=== PATIENT | female | born 1970 | race Caucasian/White ===

== ENCOUNTER → 2019-07-24 | Outpatient (CLI) | payer OTHER ==
--- NOTE | 2019-07-24 13:31 | RADIOLOGY REPORT (SQ) ---
EXAM DESCRIPTION: CHEST PA/LATERAL COMPLETED DATE/TIME: 07/24/2019 1:23 pm REASON FOR STUDY: PRE-OP COMPARISON: None available EXAM PARAMETERS: NUMBER OF VIEWS: two views TECHNIQUE: Digital Frontal and Lateral radiographic views of the chest acquired. RADIATION DOSE: NA LIMITATIONS: none FINDINGS: LUNGS AND PLEURA: No opacities, masses or pneumothorax. No pleural effusion. MEDIASTINUM AND HILAR STRUCTURES: No masses or contour abnormalities. HEART AND VASCULAR STRUCTURES: Heart normal size. No evidence for failure. BONES: No acute findings. HARDWARE: None in the chest. OTHER: No other significant finding. IMPRESSION: NO SIGNIFICANT RADIOGRAPHIC FINDING IN THE CHEST. TECHNICAL DOCUMENTATION: JOB ID: [id number] [employer]- All Rights Reserved Reading location - IP/workstation name: [email or web address]
[2019-07-24 14:07] LABS: ABSOLUTE BASOPHILS # (AUTO) 0.1 10^3/uL (0.0-0.2); ABSOLUTE EOSINOPHILS # (AUTO) 0.1 10^3/uL (0.0-0.6); ABSOLUTE LYMPHOCYTES (AUTO) 1.6 10^3/uL (0.5-4.7); ABSOLUTE MONOCYTES (AUTO) 0.4 10^3/uL (0.1-1.4); ABSOLUTE NEUT (AUTO) 3.7 10^3/uL (1.7-8.2); BASOPHILS % (AUTO) 0.9 % (0-2); EOSINOPHILS % (AUTO) 2.3 % (0-6); HEMATOCRIT 38.3 % (36.0-47.0); HEMOGLOBIN 13.1 g/dL (12.0-15.5); LYMPHOCYTES % (AUTO) 27.4 % (13-45); MEAN CORPUSCULAR HGB CONC 34.1 g/dL (32.0-36.0); MEAN CORPUSCULAR VOLUME 82 fl (80-97); MONOCYTES % (AUTO) 6.7 % (3-13); PLATELET COUNT 253 10^3/uL (150-450); RED BLOOD COUNT 4.67 10^6/uL (3.72-5.28); RED CELL DISTRIBUTION WIDTH 13.7 % (11.5-14.0); SEGMENTED NEUTROPHILS % (AUTO) 62.7 % (42-78); TOTAL CELLS COUNTED % (AUTO) 100 %
[2019-07-24 14:12] LABS: APPEARANCE,URINE CLEAR; BILIRUBIN,URINE NEGATIVE (NEGATIVE); COLOR,URINE STRAW; GLUCOSE, URINE NEGATIVE (NEGATIVE); KETONES,URINE NEGATIVE (NEGATIVE); LEUKOCYTE ESTERASE,URINE NEGATIVE (NEGATIVE); NITRITE,URINE NEGATIVE (NEGATIVE); PROTEIN,URINE NEGATIVE (NEGATIVE); URINE SPECIFIC GRAVITY 1.002; UROBILINOGEN,URINE NEGATIVE mg/dL (<2.0)
[2019-07-24 14:32] LABS: ALBUMIN 4.4 g/dL (3.5-5.0); ANION GAP 13 (5-19); BLOOD UREA NITROGEN 7 mg/dL (7-20); C-REACTIVE PROTEIN 28.7 mg/L (<10.0); CALCIUM 9.8 mg/dL (8.4-10.2); CARBON DIOXIDE 26 mmol/L (22-30); CHLORIDE 98 mmol/L (98-107); GLUCOSE 97 mg/dL (75-110); POTASSIUM 4.1 mmol/L (3.6-5.0)
[2019-07-24 14:58] LABS: ERYTHROCYTE SEDIMENTATION RATE 31 mm/hr (0-20)
--- NOTE | 2019-07-24 15:13 | EKG REPORT ---
SEVERITY:- BORDERLINE ECG - SINUS TACHYCARDIA BORDERLINE T ABNORMALITIES, ANT-LAT LEADS : Confirmed by: Caroline Victoria MD 24-Jul-2019 15:12:56
== END ==
LOC: OD 12:35
PROVIDERS: ATTEND Orthopaedic Surgery
DX: Z01.818 Encounter for other preprocedural examination (principal); R94.31 Abnormal electrocardiogram [ECG] [EKG]; I10 Essential (primary) hypertension
CPT/HCPCS: 36415; 71046; 80048; 81001; 82040; 82306; 83036; 84134; 85025; 85652; 86140; 93005; 93010

== ENCOUNTER → 2019-07-31 | Outpatient (CLI) | payer OTHER ==
[2019-08-02 07:50] LABS: CYCLIC CITRUL PEPTIDE IGG/A AB >250 units (0-19); LYME DISEASE IGM AB <0.80 index (0.00-0.79)
[2019-08-04 12:38] LABS: HLA B 27 DISEASE ASSOCIATION Negative (.)
== END ==
LOC: OD 08:29
PROVIDERS: ATTEND Orthopaedic Surgery
DX: Z01.812 Encounter for preprocedural laboratory examination (principal); A69.20 Lyme disease, unspecified
CPT/HCPCS: 36415; 86200; 86430; 86617; 86618; 86812

== ENCOUNTER → 2019-12-25 | Outpatient (CLI) | payer OTHER ==
[2019-12-25 14:09] LABS: FREE T3 3.27 pg/mL (2.77-5.27)
[2019-12-25 14:23] LABS: THYROID STIMULATING HORMONE 0.66 uIU/mL (0.47-4.68)
== END ==
LOC: OD 12:38
PROVIDERS: ATTEND Orthopaedic Surgery
DX: I10 Essential (primary) hypertension (principal); M17.11 Unilateral primary osteoarthritis, right knee; E03.9 Hypothyroidism, unspecified
CPT/HCPCS: 36415; 82306; 84436; 84443; 84481; 85652; 86140

== ENCOUNTER 2020-01-04 10:00 | Day surgery (SDC) | payer OTHER ==
[2020-01-01 11:10] LABS: HEMATOCRIT 40.4 % (36.0-47.0); HEMOGLOBIN 13.7 g/dL (12.0-15.5); MEAN CORPUSCULAR HEMOGLOBIN 27.9 pg (27.0-33.4); MEAN CORPUSCULAR VOLUME 82 fl (80-97); PLATELET COUNT 208 10^3/uL (150-450); RED BLOOD COUNT 4.92 10^6/uL (3.72-5.28); RED CELL DISTRIBUTION WIDTH 13.2 % (11.5-14.0)
[2020-01-01 11:30] LABS: ANION GAP 7 (5-19); BLOOD UREA NITROGEN 8 mg/dL (7-20); CARBON DIOXIDE 27 mmol/L (22-30); CHLORIDE 103 mmol/L (98-107); GLUCOSE 109 mg/dL (75-110); POTASSIUM 4.7 mmol/L (3.6-5.0)
[~2020-01-04 10:00] MED LIST: ACETAMINOPHEN 325 MG TABLET PO PRN; CEFAZOLIN 2 GM/D5W RTU 2 GM/50 ML RTUPB IV PRN; CELECOXIB 200 MG CAPSULE PO PRN; GABAPENTIN 100 MG CAPSULE PO PRN; ONDANSETRON HCL INJ/PF 4 MG/2 ML SDV IV PRN; SCOPOLAMINE HYDROBROMIDE 1.5 MG PATCH.TD72 TD PRN; TRAMADOL HCL 50 MG TABLET PO PRN; TRANEXAMIC ACID INJ/PF 1,000 MG/10 ML SDV IV PRN; VANCOMYCIN HCL 1,000 MG in DEXTROSE 5%-WATER 250 ML IV PRN
[2020-01-04] MEDS ORDERED: CELECOXIB 200 MG CAPSULE ONE (10:36)
[2020-01-04] MEDS ORDERED: TRAMADOL HCL 50 MG TABLET ONE (10:36)
[2020-01-04] MEDS ORDERED: SCOPOLAMINE HYDROBROMIDE 1.5 MG PATCH.TD72 ONE (10:36)
[2020-01-04] MEDS ORDERED: ACETAMINOPHEN 325 MG TABLET ONE ×2 (10:36→10:40)
[2020-01-04] MEDS ORDERED: GABAPENTIN 100 MG CAPSULE ONE (10:37)
[2020-01-04] MEDS ORDERED: FENTANYL CITRATE INJ/PF 100 MCG/2 ML AMPUL ONE (11:11)
[2020-01-04] MEDS ORDERED: MIDAZOLAM 2 MG/2 ML INJ ONE ×2 (11:11→13:03)
[2020-01-04] MEDS ORDERED: CEFAZOLIN 2 GM/D5W RTU 2 GM/50 ML RTUPB IV ONE (12:35)
[2020-01-04] MEDS ORDERED: TRANEXAMIC ACID INJ/PF 1,000 MG/10 ML SDV ONE (13:03)
[2020-01-04] MEDS ORDERED: PROPOFOL INJ 200 MG/20 ML VIAL IV ONE (13:04)
[2020-01-04] MEDS ORDERED: BUPIVACAINE HCL 0.25 % INJ/PF (2.5 MG/1 ML) 30 ML VIAL ONE (13:07)
[2020-01-04] MEDS: BUPIVACAINE HCL 0.5%-EPI 1:200000 INJ/PF 30 ML VIAL ONE ×2 (14:15→14:53)
[2020-01-04] MEDS: LIDOCAINE 1% INJ-PF (10 MG/ML) 30 ML SDV ONE ×2 (14:15→14:53)
[2020-01-04] MEDS: KETOROLAC TROMETHAMINE INJ/PF 30 MG/1 ML SDV ONE ×2 (14:16→14:53)
[2020-01-04] MEDS: VANCOMYCIN HCL INJ 1000 MG VIAL ONE ×2 (14:17→14:53)
[2020-01-04] MEDS ORDERED: DIPHENHYDRAMINE HCL 50 MG/ML VIAL IV PRN (14:26)
[2020-01-04] MEDS ORDERED: FENTANYL CITRATE INJ/PF 100 MCG/2 ML AMPUL IV PRN (14:26)
[2020-01-04] MEDS ORDERED: PROMETHAZINE HCL INJ 25 MG/1 ML VIAL IV PRN (14:26)
--- NOTE | 2020-01-04 15:32 | Operative Report ---
Operative Report DATE OF SURGERY: 01/04/20 PREOPERATIVE DIAGNOSIS: Right knee primary osteoarthritis, severe POSTOPERATIVE DIAGNOSIS: Right knee primary osteoarthritis, severe potential pigmented villonodular synovitis OPERATION: Right total knee arthroplasty SURGEON: DANY LUNSFORD JR ANESTHESIA: Spinal COMPLICATIONS: None ESTIMATED BLOOD LOSS: 20 cc PROCEDURE: Components: Latrice triathlon total knee: 3 PS femur, 4 x 11 tibia, and a 32 patella OPERATIVE PROCEDURE: Patient was brought to the operating room and spinal anesthesia was administered. After proper anesthesia was obtained, patient was positioned, padded, prepped, and draped in the usual sterile fashion on the operating room table. 2 grams of Ancef and 1 g of vancomycin were given. Appropriate time out was performed. Anterior incision and medial-parapatella approach was performed. Severe degenerative arthritis was noted. Osteophytes were removed from the femur and tibia, and the remainder of the ACL and PCL were removed. The proximal tibia was then prepared and cut perpendicular to the tibial shaft axis and measured to a 4 tibia. The distal femur was drilled, the canal was irrigated and the distal femoral guide was placed. The distal femur was cut 10 mm to 5 degrees of varus. An extension 10 block was placed in the gap was found to be slightly tight. We then returned to the distal femur and cut 2 more millimeters. The tensor was placed in extension and the extension gap was balanced with releases until the goniometer on the tensor measured to 0. The tensor was placed in flexion and the femur was sized to 30. Drill holes were placed to the appropriate femoral rotation. The 4 and 1 block was placed and the flexion gap was then re-checked with the tensor adapter and found to be appropriate. Anterior-posterior and chamfer cuts were made. Posterior osteophytes were removed. The femoral trial was then placed, and the notch was cut. The combination of the tibial baseplate and the 11 mm polyethylene liner were then placed and the knee was taken through a range of motion with the trials in. This had excellent balance in extension and flexion as well as patellar tracking. The patella AP aspect was measured to 24 mm and the patella was cut parallel to the anterior patella surface. A 32 mm button was placed medially and superiorly as possible and the patella-button construct again measured 24 mm. This was again taken through a range of motion and found to have excellent balance, stability and ease of full motion. The ro tation of the tibial baseplate was marked, the tibial was anteriorly subluxed and the tibial component was pinned and drilled and punched. All the trials were then removed and the wound was copiously irrigated with sterile saline followed by a Betadine soak. After pulsatile irrigation of the janice and soft tissue surfaces, the janice surfaces were cleaned and dried, and cementation of the femur, tibia, and patella was performed. All excess cement was thoroughly removed. The knee was placed in slight flexion until cement was hard. Periarticular injection with Lidocaine, Marcaine and Toradol was performed. The knee was irrigated copiously. A gram of Vancomycin was placed intra-articularly. The extensor mechanism was closed with 0 vicryl tacking sutures and number 2 Stratofix. The subcutaneous tissue was closed with 2-0 monocryl and the skin closed with 3-0 running monocryl. A silver dressing was applied. All needle sponge and instrument counts were correct. Patient was awakened from sedation anesthesia and taken to recovery room in good condition. Dany Lunsford DO
[2020-01-04] MEDS ORDERED: EPHEDRINE SULFATE INJ 50 MG/1 ML AMPULE ONE (15:54)
[2020-01-04] MEDS ORDERED: OXYCODONE HCL IR 5 MG TABLET PO PRN ×2 (16:04)
[2020-01-04] MEDS ORDERED: TRAMADOL HCL 50 MG TABLET PO PRN (16:05)
[2020-01-04] MEDS ORDERED: MORPHINE SULFATE 10 MG/ML INJ IV PRN (16:05)
[2020-01-04] MEDS ORDERED: PANTOPRAZOLE SODIUM 20 MG TABLET.DR PO PRN (16:07)
[2020-01-04] MEDS ORDERED: DIPHENHYDRAMINE HCL 25 MG CAPSULE PO PRN (16:07)
[2020-01-04] MEDS ORDERED: ZOLPIDEM TARTRATE 5 MG TABLET PO PRN (16:07)
[2020-01-04] MEDS ORDERED: DOCUSATE SODIUM 100 MG CAPSULE PO PRN (16:08)
[2020-01-04] MEDS ORDERED: NORMAL SALINE 1000 ML 1,000 ML IV PRN (16:08)
[2020-01-04] MEDS ORDERED: ONDANSETRON 4 MG TAB.RAPDIS PO PRN (16:09)
--- NOTE | 2020-01-04 16:31 | RADIOLOGY REPORT (SQ) ---
EXAM DESCRIPTION: KNEE RIGHT 2 VIEWS IMAGES COMPLETED DATE/TIME: 01/04/2020 4:18 pm REASON FOR STUDY: S/P RIGHT TOTAL KNEE M17.11 UNILATERAL PRIMARY OSTEOARTHRITIS, RIGHT KNEE COMPARISON: None. NUMBER OF VIEWS: Two view(s). TECHNIQUE: Digital radiographic images of the right knee post-procedure. LIMITATIONS: None. FINDINGS: BONES: No worrisome or unexpected findings post-procedure. DEVICE: Total knee arthroplasty SOFT TISSUES: No worrisome findings. Expected postoperative soft tissue changes. IMPRESSION: SATISFACTORY POSTOPERATIVE RIGHT KNEE. TECHNICAL DOCUMENTATION: JOB ID: [id number] 2010 [employer]- All Rights Reserved Reading location - IP/workstation name: [email or web address]
--- NOTE | 2020-01-04 16:32 | Discharge Summary ---
Discharge Summary (SDC) - Discharge Final Diagnosis: Severe Right knee Primary Osteoarthritis Date of Surgery: 01/04/20 Discharge Date: 01/04/20 Condition: Stable Treatment or Instructions: Full details of postoperative instructions have been provided to the patient in the clinic. Additionally they should maintain their bandage in place for 5 to 7 days, and then changed to a dry dressing. They can take showers with this occlusive dressing but any further dressing should also be occlusive. No showers with the wound unprotected until cleared by me in the clinic. If the bandage falls off early or become saturated they can change as needed to another occlusive dressing. Referrals: EDILMA MELENDEZ PA [Primary Care Provider] - Discharge Diet: As Tolerated Respiratory Treatments at Home: Deep Breathing/Coughing Discharge Activity: Activity As Tolerated, No Driving, Keep Legs Elevated, No Lifting Over 10 Pounds, Slowly Increase Activity, No tub bath, Walk Frequently Home Care Assistance: None Needed Adaptive Devices on Discharge: Rolling Walker, Bedside Commode Report the Following to Your Physician Immediately: Shortness of Breath, Fever over 101 Degrees, Drainage-Yellow
[2020-01-04 18:37] VITALS: BP 108/71
[2020-01-04] MEDS ORDERED: CEFAZOLIN SODIUM 2 GM in DEXTROSE 5%-WATER 100 ML IV SCH (22:00)
[2020-01-04] MEDS ORDERED: ACETAMINOPHEN 325 MG TABLET PO SCH (22:00)
[2020-01-04] MEDS ORDERED: KETOROLAC TROMETHAMINE INJ/PF 30 MG/1 ML SDV IV SCH (22:00)
[2020-01-04] MEDS ORDERED: GABAPENTIN 100 MG CAPSULE PO SCH (22:00)
[2020-01-05] MEDS ORDERED: LEVOTHYROXINE SODIUM 0.05 MG TABLET PO SCH (06:00)
[2020-01-05] MEDS ORDERED: ASPIRIN 325 MG TABLET, ENT COATED PO SCH (10:00)
[2020-01-05] MEDS ORDERED: LEVOTHYROXINE SODIUM 0.025 MG TABLET PO SCH (10:00)
[2020-01-05] MEDS ORDERED: CELECOXIB 200 MG CAPSULE PO SCH (10:00)
[2020-01-05] MEDS ORDERED: POLYETHYLENE GLYCOL 3350 POWDER 17 GM/1 PACKET PO SCH (10:00)
== END 2020-01-04 19:37 | disposition home or self-care (01) ==
LOC: OROUT 10:00 → 4N 16:53 → OROUT 19:37
PROVIDERS: ATTEND Orthopaedic Surgery
DX: M17.11 Unilateral primary osteoarthritis, right knee (principal); M12.261 Villonodular synovitis (pigmented), right knee; Z03.818 Encounter for observation for suspected exposure to other biological agents ruled out; Z79.899 Other long term (current) drug therapy; Z88.0 Allergy status to penicillin; M06.9 Rheumatoid arthritis, unspecified; M24.561 Contracture, right knee
CPT/HCPCS: 27447; 36415; 85027; 87635; 81025; 80048; 73560; 97110; 97116; 97162; 97535; 97166; J2250; J3490 ×4; J3010; J1885; J7060; J2704; J3370; J0690; C9803; 88305; 88311